=== PATIENT | female | born 2000 | race American Indian/Alaskan Native ===

== ENCOUNTER 2018-08-07 00:26 | Emergency (ER) | payer MEDICAID, OTHER ==
--- NOTE | 2018-08-07 02:01 | Emergency Department Report ---
ED ENT HPI - General Chief complaint: Earache Stated complaint: PAIN ON RIGHT SIDE OF MOUTH/RIGHT EAR PAIN Time Seen by Provider: 08/07/18 01:49 Source: patient Mode of arrival: Ambulatory Limitations: No Limitations - History of Present Illness Initial comments: Pt is a 18 yo female who presents to the ED with c/o left upper and left lower dental pain that began a week ago. She states the left lower tooth fell out and the left upper tooth cracked. She states she also has left ear pain. She denies any drainage, fever, rhinorrhea, congestion, cough. The patient states she has not seen a dentist since Nov 2017. She has been alternating tylenol and ibuprofen for pain. She denies any PMHx or any allergies to medications. - Related Data Previous Rx's Medication Instructions Recorded Last Taken Type ALBUTEROL Inhaler (OR & NICU) 1 - 2 puff IH QID PRN #1 inha 07/02/15 Unknown Rx [ProAir HFA Inhaler] Famotidine [Pepcid] 20 mg PO BID #40 tablet 07/02/15 Unknown Rx Acetaminophen/Codeine [Tylenol 1 tab PO Q6H PRN #14 tab 08/07/18 Unknown Rx /Codeine # 3 tab] Amoxicillin/K Clav Tab [Augmentin 1 tab PO BID 7 Days #14 tab 08/07/18 Unknown Rx 875 mg] Ibuprofen 600 mg PO Q6HR PRN #20 tablet 08/07/18 Unknown Rx Allergies Allergy/AdvReac Type Severity Reaction Status Date / Time No Known Allergies Allergy Verified 10/24/14 01:09 ED Dental HPI - General Chief complaint: Earache Stated complaint: PAIN ON RIGHT SIDE OF MOUTH/RIGHT EAR PAIN Time Seen by Provider: 08/07/18 01:49 Source: patient Mode of arrival: Ambulatory Limitations: No Limitations - Related Data Previous Rx's Medication Instructions Recorded Last Taken Type ALBUTEROL Inhaler (OR & NICU) 1 - 2 puff IH QID PRN #1 inha 07/02/15 Unknown Rx [ProAir HFA Inhaler] Famotidine [Pepcid] 20 mg PO BID #40 tablet 07/02/15 Unknown Rx Acetaminophen/Codeine [Tylenol 1 tab PO Q6H PRN #14 tab 08/07/18 Unknown Rx /Codeine # 3 tab] Amoxicillin/K Clav Tab [Augmentin 1 tab PO BID 7 Days #14 tab 08/07/18 Unknown Rx 875 mg] Ibuprofen 600 mg PO Q6HR PRN #20 tablet 08/07/18 Unknown Rx Allergies Allergy/AdvReac Type Severity Reaction Status Date / Time No Known Allergies Allergy Verified 10/24/14 01:09 ED Review of Systems ROS: Stated complaint: PAIN ON RIGHT SIDE OF MOUTH/RIGHT EAR PAIN Other details as noted in HPI Comment: All other systems reviewed and negative ED Past Medical Hx - Past Medical History Hx Asthma: Yes - Social History Smoking Status: Never Smoker Substance Use Type: None - Medications Home Medications: Home Medications Medication Instructions Recorded Confirmed Last Taken Type ALBUTEROL Inhaler (OR & NICU) 1 - 2 puff IH QID PRN #1 inha 07/02/15 Unknown Rx [ProAir HFA Inhaler] Famotidine [Pepcid] 20 mg PO BID #40 tablet 07/02/15 Unknown Rx Acetaminophen/Codeine [Tylenol 1 tab PO Q6H PRN #14 tab 08/07/18 Unknown Rx /Codeine # 3 tab] Amoxicillin/K Clav Tab [Augmentin 1 tab PO BID 7 Days #14 tab 08/07/18 Unknown Rx 875 mg] Ibuprofen 600 mg PO Q6HR PRN #20 tablet 08/07/18 Unknown Rx ED Physical Exam - General Limitations: No Limitations General appearance: alert, in no apparent distress - Head Head exam: Present: atraumatic, normocephalic - Eye Eye exam: Present: normal appearance - ENT ENT exam: Present: TM's normal bilaterally, normal external ear exam, other (left lower with tooth missing appears to still have the root of the tooth present, left upper tooth with a partial fracture that appears to extend to pulp, no obvious dental abscess in the left lower or upper, no facial swelling) - Respiratory Respiratory exam: Present: normal lung sounds bilaterally. Absent: respiratory distress, wheezes, rales, rhonchi, stridor, chest wall tenderness, accessory muscle use, decreased breath sounds, prolonged expiratory - Cardiovascular Cardiovascular Exam: Present: regular rate, normal rhythm, normal heart sounds. Absent: systolic murmur, diastolic murmur, rubs, gallop - Neurological Exam Neurological exam: Present: alert, oriented X3 - Psychiatric Psychiatric exam: Present: normal affect, normal mood - Skin Skin exam: Present: warm, dry, intact ED Course Vital Signs 08/07/18 02:11 Temperature 98.2 F Pulse Rate 66 Respiratory 16 Rate Blood Pressure 142/93 [Left] O2 Sat by Pulse 99 Oximetry ED Medical Decision Making - Medical Decision Making Pt is a 18 yo female who presents to the ED with c/o left upper and left lower dental pain that began a week ago. She states the left lower tooth fell out and the left upper tooth cracked. She states she also has left ear pain. She denies any drainage, fever, rhinorrhea, congestion, cough. The patient states she has not seen a dentist since Nov 2017. She has been alternating tylenol and ibuprofen for pain. She denies any PMHx or any allergies to medications. VSS, afebrile. On examination pt has broken tooth just with the root intact and a partial crack on the left upper, no obvious dental abscess. Pt given pain medication and antibiotics. Advised pt to be seen by a dentist [facility]. Discussed with pt to follow up with PCP in the next 2-3 days. Return to the emergency room for any new or worsening symptoms. - Differential Diagnosis dental caries, cracked tooth, dental pain, dental abscess Critical care attestation.: If time is entered above; I have spent that time in minutes in the direct care of this critically ill patient, excluding procedure time. ED Disposition Clinical Impression: Pain, dental, Cracked tooth Disposition: TO HOME OR SELFCARE Is pt being admited?: No Does the pt Need Aspirin: No Condition: Stable Instructions: Dental Caries (ED), Toothache (ED) Additional Instructions: Please follow up with your dentist [facility]. Please follow up with your primary care doctor in the next 2-3 days. Take all medication as prescribed. Return to the emergency room for any new or worsening symptoms. Prescriptions: Amoxicillin/K Clav Tab [Augmentin 875 mg] 1 tab PO BID 7 Days #14 tab Ibuprofen 600 mg PO Q6HR PRN #20 tablet PRN Reason: Pain, Moderate (4-6) Acetaminophen/Codeine [Tylenol /Codeine # 3 tab] 1 tab PO Q6H PRN #14 tab PRN Reason: Pain , Severe (7-10) Referrals: HARJINDER NOBLE MD [Primary Care Provider] - 2-3 Days Time of Disposition: 02:01 Print Language: TELUGU
[2018-08-07 02:12] VITALS: BP 142/93
== END 2018-08-07 02:14 | disposition home or self-care (01) ==
LOC: ED 00:26
DX: K03.81 Cracked tooth (principal); J45.909 Unspecified asthma, uncomplicated

== ENCOUNTER 2018-09-26 09:03 | Emergency (ER) | payer SELFPAY ==
[2018-09-26 09:07] VITALS: BP 122/84
--- NOTE | 2018-09-26 09:27 | Emergency Department Report ---
ED Female HPI - General Chief complaint: Urogenital-Female Stated complaint: UTI Time Seen by Provider: 09/26/18 09:15 Source: patient Mode of arrival: Ambulatory Limitations: No Limitations - History of Present Illness Initial comments: Miss Marin is a very pleasant 18-year-old female who presents with symptoms of a urinary tract infection the past 2 weeks. The symptoms resolved with Azo [id number]. Now she has right groin pain. She is concerned for . She did have a urine test is negative. 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 Her colleague who is altered track superintendent saw a yolk sac which measured to be 5 weeks gestational age. She denies fever. She denies discharge. She does have a previous history of PID. MD Complaint: pelvic pain -: Gradual, week(s) (2) Severity: mild Quality: cramping Consistency: constant Improves with: none Worsens with: none Are you Now?: Yes (urine tests negative, ultrasound positive) Associated Symptoms: denies other symptoms - Related Data Previous Rx's Medication Instructions Recorded Last Taken Type ALBUTEROL Inhaler (OR & NICU) 1 - 2 puff IH QID PRN #1 inha 07/02/15 Unknown Rx [ProAir HFA Inhaler] Famotidine [Pepcid] 20 mg PO BID #40 tablet 07/02/15 Unknown Rx Acetaminophen/Codeine [Tylenol 1 tab PO Q6H PRN #14 tab 08/07/18 Unknown Rx /Codeine # 3 tab] Amoxicillin/K Clav Tab [Augmentin 1 tab PO BID 7 Days #14 tab 08/07/18 Unknown Rx 875 mg] Ibuprofen 600 mg PO Q6HR PRN #20 tablet 08/07/18 Unknown Rx Allergies Allergy/AdvReac Type Severity Reaction Status Date / Time No Known Allergies Allergy Verified 09/26/18 09:04 ED Review of Systems ROS: Stated complaint: UTI Other details as noted in HPI Comment: All other systems reviewed and negative Constitutional: denies: fever, malaise Cardiovascular: denies: chest pain ED Past Medical Hx - Past Medical History Previous Medical History?: Yes Hx Asthma: Yes - Surgical History Past Surgical History?: No - Social History Smoking Status: Never Smoker - Medications Home Medications: Home Medications Medication Instructions Recorded Confirmed Last Taken Type ALBUTEROL Inhaler (OR & NICU) 1 - 2 puff IH QID PRN #1 inha 07/02/15 Unknown Rx [ProAir HFA Inhaler] Famotidine [Pepcid] 20 mg PO BID #40 tablet 07/02/15 Unknown Rx Acetaminophen/Codeine [Tylenol 1 tab PO Q6H PRN #14 tab 08/07/18 Unknown Rx /Codeine # 3 tab] Amoxicillin/K Clav Tab [Augmentin 1 tab PO BID 7 Days #14 tab 08/07/18 Unknown Rx 875 mg] Ibuprofen 600 mg PO Q6HR PRN #20 tablet 08/07/18 Unknown Rx ED Physical Exam - General Limitations: No Limitations General appearance: alert, in no apparent distress, other (pleasant happy brisk ambulation) - Head Head exam: Present: atraumatic, normocephalic - Eye Eye exam: Present: normal appearance. Absent: scleral icterus, conjunctival injection - ENT ENT exam: Present: mucous membranes moist - Neck Neck exam: Present: normal inspection, full ROM - Respiratory Respiratory exam: Present: normal lung sounds bilaterally. Absent: respiratory distress, wheezes, rales, rhonchi - Cardiovascular Cardiovascular Exam: Present: regular rate, normal rhythm, normal heart sounds. Absent: systolic murmur, diastolic murmur, rubs, gallop - GI/Abdominal GI/Abdominal exam: Present: soft, normal bowel sounds. Absent: distended, tenderness, guarding, rebound - Extremities Exam Extremities exam: Present: normal inspection - Back Exam Back exam: Present: normal inspection - Neurological Exam Neurological exam: Present: alert, oriented X3 - Psychiatric Psychiatric exam: Present: normal affect, normal mood - Skin Skin exam: Present: warm, dry, intact, normal color. Absent: rash ED Course Vital Signs 09/26/18 09:04 Temperature 99.0 F Pulse Rate 99 H Respiratory 16 Rate Blood Pressure 122/84 O2 Sat by Pulse 99 Oximetry ED Medical Decision Making - Medical Decision Making Ms. Marin presents with right groin pain. No symptoms otherwise to indicate pelvic inflammatory disease. Urine and serum tests were negative. Urinalysis negative for UTI. I strongly encouraged evaluation by PATIENT CARE REPRESENTATIVE to which she was referred. Differential diagnosis includes ovarian cyst. Minor pain do not suspect ovarian torsion. Critical care attestation.: If time is entered above; I have spent that time in minutes in the direct care of this critically ill patient, excluding procedure time. ED Disposition Clinical Impression: Pelvic pain Disposition: DC-01 TO HOME OR SELFCARE Is pt being admited?: No Does the pt Need Aspirin: No Condition: Stable Instructions: Chronic Pelvic Pain in Women (ED) Referrals: HARJINDER NOBLE MD [Primary Care Provider] - 3-5 Days
[2018-09-26 10:01] LABS: Bilirubin,Urine NEG (Negative); Blood,Urine NEG (Negative); Color,Urine Yellow (Yellow); Mucus,Urine FEW /HPF; Protein,Urine <15 mg/dL mg/dL (Negative); Urobilinogen,Urine < 2.0 mg/dL (<2.0)
[2018-09-26 10:03] LABS: HCG Qualitative,Urine Negative (Negative)
== END 2018-09-26 11:03 | disposition home or self-care (01) ==
LOC: ED 09:03
DX: R10.2 Pelvic and perineal pain (principal); J45.909 Unspecified asthma, uncomplicated
CPT/HCPCS: 36415; 81001; 81025; 84702; 99283

== ENCOUNTER 2018-12-08 10:40 | Emergency (ER) | payer OTHER ==
[2018-12-08 11:14] VITALS: BP 132/72
--- NOTE | 2018-12-08 11:16 | Event Note ---
ED Screening Note Date of service: 12/08/18 Time: 11:12 ED Screening Note: This is a 18 y.o. F. that presents to the ER with nausea, vomiting, diarrhea, and abdominal pain x 2 days. PMH of asthma LMP 12/06/2018 This initial assessment/diagnostic orders/clinical plan/treatment(s) is/are subject to change based on patients health status, clinical progression and re- assessment by fellow clinical providers in the ED. Further treatment and workup at subsequent clinical providers discretion. Patient/guardian urged not to elope from the ED as their condition may be serious if not clinically assessed and managed. Initial orders include: Labs
[2018-12-08 11:56] LABS: Basophils % (Auto) 0.3 % (0.0-1.8); Hematocrit 39.2 % (30.3-42.9); Hemoglobin 13.5 gm/dl (10.1-14.3); Lymphocytes # (Auto) 1.1 K/mm3 (1.2-5.4); Lymphocytes % (Auto) 12.1 % (13.4-35.0); Mean Corpuscular HGB Conc 35 % (30-34); Mean Corpuscular Volume 92 fl (79-97); Monocytes # (Auto) 0.6 K/mm3 (0.0-0.8); Platelet Count 259 K/mm3 (140-440); Red Blood Count 4.27 M/mm3 (3.65-5.03); Red Cell Distribution Width 12.8 % (13.2-15.2)
--- NOTE | 2018-12-08 12:03 | Emergency Department Report ---
ED Abdominal Pain HPI - General Chief Complaint: Nausea/Vomiting/Diarrhea Stated Complaint: FEVER/CHILLS/BODY ACHE Time Seen by Provider: 12/08/18 11:11 Source: patient Mode of arrival: Ambulatory Limitations: No Limitations - History of Present Illness Initial Comments: 18-year-old female who presents to ED with abdominal pain, nausea, vomiting, diarrhea. Patient states symptoms began 2 days ago, with onset of her menstrual period. Patient initially thought that she was only experiencing menstrual cramping, however states the pain became worse, diffuse throughout her abdomen, and patient then developed vomiting and diarrhea, fever and chills. Patient denies any urinary symptoms. MD Complaint: abdominal pain -: days(s) (2) Location: suprapubic Radiation: back, other (diffusely) Migration to: no migration Severity: moderate Quality: cramping Consistency: constant Improves With: nothing Worsens With: nothing Associated Symptoms: nausea, vomiting, diarrhea, fever, chills. denies: dysuria - Related Data Previous Rx's Medication Instructions Recorded Last Taken Type ALBUTEROL Inhaler (OR & NICU) 1 - 2 puff IH QID PRN #1 inha 07/02/15 Unknown Rx [ProAir HFA Inhaler] Famotidine [Pepcid] 20 mg PO BID #40 tablet 07/02/15 Unknown Rx Acetaminophen/Codeine [Tylenol 1 tab PO Q6H PRN #14 tab 08/07/18 Unknown Rx /Codeine # 3 tab] Amoxicillin/K Clav Tab [Augmentin 1 tab PO BID 7 Days #14 tab 08/07/18 Unknown Rx 875 mg] Ibuprofen 600 mg PO Q6HR PRN #20 tablet 08/07/18 Unknown Rx Ondansetron [Zofran Odt] 4 mg PO Q8HR PRN #20 tab.rapdis 12/08/18 Unknown Rx Phenazopyridine [Pyridium] 200 mg PO TID #6 tab 12/08/18 Unknown Rx Sulfamethoxazole/Trimethoprim 1 each PO BID #6 tablet 12/08/18 Unknown Rx [Bactrim DS TAB] Allergies Allergy/AdvReac Type Severity Reaction Status Date / Time No Known Allergies Allergy Verified 09/26/18 09:04 ED Review of Systems ROS: Stated complaint: FEVER/CHILLS/BODY ACHE Other details as noted in HPI Comment: All other systems reviewed and negative Constitutional: chills, fever Gastrointestinal: abdominal pain, nausea, vomiting, diarrhea Genitourinary: denies: dysuria, frequency, hematuria, discharge Musculoskeletal: back pain ED Past Medical Hx - Past Medical History Previous Medical History?: Yes Hx Asthma: Yes - Surgical History Past Surgical History?: No - Social History Smoking Status: Never Smoker Substance Use Type: None - Medications Home Medications: Home Medications Medication Instructions Recorded Confirmed Last Taken Type ALBUTEROL Inhaler (OR & NICU) 1 - 2 puff IH QID PRN #1 inha 07/02/15 Unknown Rx [ProAir HFA Inhaler] Famotidine [Pepcid] 20 mg PO BID #40 tablet 07/02/15 Unknown Rx Acetaminophen/Codeine [Tylenol 1 tab PO Q6H PRN #14 tab 08/07/18 Unknown Rx /Codeine # 3 tab] Amoxicillin/K Clav Tab [Augmentin 1 tab PO BID 7 Days #14 tab 08/07/18 Unknown Rx 875 mg] Ibuprofen 600 mg PO Q6HR PRN #20 tablet 08/07/18 Unknown Rx Ondansetron [Zofran Odt] 4 mg PO Q8HR PRN #20 tab.rapdis 12/08/18 Unknown Rx Phenazopyridine [Pyridium] 200 mg PO TID #6 tab 12/08/18 Unknown Rx Sulfamethoxazole/Trimethoprim 1 each PO BID #6 tablet 12/08/18 Unknown Rx [Bactrim DS TAB] ED Physical Exam - General Limitations: No Limitations General appearance: alert, in no apparent distress - Head Head exam: Present: atraumatic, normocephalic - Eye Eye exam: Present: normal appearance, PERRL, EOMI - ENT ENT exam: Present: mucous membranes moist - Neck Neck exam: Present: normal inspection - Respiratory Respiratory exam: Present: normal lung sounds bilaterally. Absent: respiratory distress - Cardiovascular Cardiovascular Exam: Present: normal rhythm, tachycardia - GI/Abdominal GI/Abdominal exam: Present: soft, tenderness (mild diffuse tenderness). Absent: distended - Extremities Exam Extremities exam: Present: normal inspection - Neurological Exam Neurological exam: Present: alert, oriented X3 - Psychiatric Psychiatric exam: Present: normal affect, normal mood - Skin Skin exam: Present: warm, dry, intact, normal color ED Course Vital Signs 08/14/19 08/14/19 11:12 12:11 Temperature 100 F H Pulse Rate 105 H Respiratory 20 18 Rate Blood Pressure 132/72 O2 Sat by Pulse 97 Oximetry ED Medical Decision Making - Lab Data Result diagrams: 12/08/18 11:39 12/08/18 11:39 - Differential Diagnosis UTI, , gastroenteritis Critical care attestation.: If time is entered above; I have spent that time in minutes in the direct care of this critically ill patient, excluding procedure time. ED Disposition Clinical Impression: UTI (urinary tract infection), Hypokalemia Disposition: - TO HOME OR SELFCARE Is pt being admited?: No Condition: Stable Instructions: Urinary Tract Infection in Women (ED), Hypokalemia (ED) Prescriptions: Sulfamethoxazole/Trimethoprim [Bactrim DS TAB] 1 each PO BID #6 tablet Phenazopyridine [Pyridium] 200 mg PO TID #6 tab Ondansetron [Zofran Odt] 4 mg PO Q8HR PRN #20 tab.rapdis PRN Reason: Vomiting Referrals: HARJINDER NOBLE MD [Primary Care Provider] - 3-5 Days Forms: Work/School Release Form(ED)
[2018-12-08] MEDS ORDERED: IBUPROFEN PO ONE (12:04)
[2018-12-08 12:19] LABS: BUN/Creatinine Ratio 8; Blood Urea Nitrogen 6 mg/dL (7-17); Calcium 8.8 mg/dL (8.4-10.2); Hemolysis Index 7
[2018-12-08 12:48] LABS: Bacteria,Urine 1+ /HPF (Negative); Bilirubin,Urine NEG (Negative); Blood,Urine LG (Negative); Color,Urine Yellow (Yellow); Mucus,Urine 2+ /HPF; Urobilinogen,Urine < 2.0 mg/dL (<2.0)
[2018-12-08 12:49] LABS: HCG Qualitative,Urine Negative (Negative)
[2018-12-08] MEDS ORDERED: K-DUR PO ONE (13:06)
[2018-12-08] MEDS ORDERED: ZOFRAN ODT PO ONE ×2 (13:06→13:16)
== END 2018-12-08 14:13 | disposition home or self-care (01) ==
LOC: ED 10:40
DX: N39.0 Urinary tract infection, site not specified (principal); E87.6 Hypokalemia; J45.909 Unspecified asthma, uncomplicated; Z79.899 Other long term (current) drug therapy
CPT/HCPCS: 36415; 80048; 81001; 81025; 83690; 85025; 87086; 99283; Q0162